=== PATIENT | female | born 1990 | race Caucasian/White ===

== ENCOUNTER → 2016-03-24 | Outpatient (CLI) | payer OTHER ==
[~2016-03-24] MED LIST: BIRTH CONTROL1 EAC1 PO; CIPRO250 MG PO; PRE-NATAL1 TA1 PO; ZOFRAN ODT4 MG SL
== END | disposition home or self-care (01) ==
LOC: US 03-16 07:30
DX: B25.9 Cytomegaloviral disease, unspecified (principal)

== ENCOUNTER 2016-10-23 12:24 | Emergency (ER) | payer SELFPAY ==
[~2016-10-23] VITALS: Ht 160 cm; Wt 61.2 kg
[2016-10-23] MEDS ORDERED: NAPROSYN500 MG PO (12:33)
== END 2016-10-23 13:25 | disposition home or self-care (01) ==
LOC: ED 12:24
DX: S62.306A Unspecified fracture of fifth metacarpal bone, right hand, initial encounter for closed fracture (principal); R03.0 Elevated blood-pressure reading, without diagnosis of hypertension; F17.200 Nicotine dependence, unspecified, uncomplicated; W55.22XA Struck by cow, initial encounter; Y93.K2 Activity, milking an animal; Y92.9 Unspecified place or not applicable; Y99.0 Civilian activity done for income or pay

== ENCOUNTER 2018-12-21 09:49 | Emergency (ER) | payer BC ==
[~2018-12-21] VITALS: Ht 162.5 cm; Wt 61.7 kg
[~2018-12-21 09:49] MED LIST changes: +NAPROSYN500 MG PO
[2018-12-21] MEDS ORDERED: ZITHROMAX250 MG PO (11:27)
[2018-12-21] MEDS ORDERED: TESSALON PERLE100 M1 PO (11:27)
[2018-12-21] MEDS ORDERED: PREDNISONE50 MG PO (11:27)
== END 2018-12-21 11:29 | disposition home or self-care (01) ==
LOC: ED 09:49
DX: J20.9 Acute bronchitis, unspecified (principal); F17.200 Nicotine dependence, unspecified, uncomplicated

== ENCOUNTER 2019-01-17 09:05 | Emergency (ER) | payer BC ==
[~2019-01-17] VITALS: Ht 165.1 cm; Wt 54.4 kg
[~2019-01-17 09:05] MED LIST changes: +PREDNISONE50 MG PO; +TESSALON PERLE100 M1 PO; +ZITHROMAX250 MG PO
[2019-01-17 09:30] LABS: BILIRUBIN NEGATIVE (NEGATIVE); BLOOD NEGATIVE (NEGATIVE); CLARITY CLEAR (CLEAR); COLOR YELLOW (YELLOW); GLUCOSE NEGATIVE (NEGATIVE); KETONE NEGATIVE (NEGATIVE); LEUKO ESTERASE 1+ (NEGATIVE); NITRITE NEGATIVE (NEGATIVE); SPECIFIC GRAVITY 1.025 (1.005-1.030); UROBILINOGEN 0.2 E.U./dl (0.2-1.0)
[2019-01-17 09:40] LABS: MUCOUS 1+
[2019-01-17] MEDS ORDERED: CEFUROXIME AXE500 MG PO (09:50)
[2019-01-18 17:04] LABS: GONOCOCCUS BY NAA Negative (Negative)
== END 2019-01-17 10:18 | disposition home or self-care (01) ==
LOC: ED 09:05
PROVIDERS: Nurse Practitioner Family
DX: N39.0 Urinary tract infection, site not specified (principal); N89.8 Other specified noninflammatory disorders of vagina; Z20.2 Contact with and (suspected) exposure to infections with a predominantly sexual mode of transmission; Z32.02 Encounter for pregnancy test, result negative; Z79.899 Other long term (current) drug therapy

== ENCOUNTER 2019-08-25 00:23 | Emergency (ER) | payer OTHER ==
[~2019-08-25] VITALS: Ht 160 cm; Wt 56.7 kg
[~2019-08-25 00:23] MED LIST changes: +CEFUROXIME AXE500 MG PO
[2019-08-25] MEDS ORDERED: HYDROCREAM28.4 GM T (01:25)
[2019-08-25] MEDS ORDERED: NEIGHBOR P PO (01:25)
== END 2019-08-25 02:03 | disposition home or self-care (01) ==
LOC: ED 00:23
DX: L25.5 Unspecified contact dermatitis due to plants, except food (principal); Z79.899 Other long term (current) drug therapy

== ENCOUNTER 2022-10-27 23:54 | Emergency (ER) | payer OTHER ==
[~2022-10-27] VITALS: Ht 160 cm; Wt 61.7 kg
[~2022-10-27 23:54] MED LIST changes: +HYDROCREAM28.4 GM T; +NEIGHBOR P PO
== END 2022-10-28 02:24 | disposition home or self-care (01) ==
LOC: ED 23:54
DX: L23.7 Allergic contact dermatitis due to plants, except food (principal); Z87.891 Personal history of nicotine dependence

== ENCOUNTER → 2023-04-01 | Outpatient (CLI) | payer OTHER | END | disposition home or self-care (01) | LOC: US 15:00 | PROVIDERS: ATTEND Nurse Practitioner Women's Health | DX: N83.202 Unspecified ovarian cyst, left side (principal) ==

== ENCOUNTER 2024-10-07 22:21 | Emergency (ER) | payer BC ==
[~2024-10-07] VITALS: Ht 162.5 cm; Wt 72.1 kg
[2024-10-07] MEDS ORDERED: Ondansetron Hydrochloride 4 MG/2 ML VIAL IV ONE (22:40)
[2024-10-07] MEDS ORDERED: SODIUM CHLORIDE 0.9% 1,000 ML IV ONE ×2 (22:40)
[2024-10-07 22:42] LABS: BILIRUBIN Negative (Negative); BLOOD 1+ (Negative); CLARITY Cloudy (Clear); COLOR Yellow (Yellow); KETONE 3+ (Negative); LEUKO ESTERASE 1+ (Negative); NITRITE Negative (Negative); PH 6.0 (4.5-8.0); SPECIFIC GRAVITY 1.025 (1.001-1.030); UROBILINOGEN 1.0 E.U./dl (0.0-1.0)
[2024-10-07 22:57] LABS: EPITHELIAL CELLS 41-50; MUCOUS 2+; RBC 16-20 rbc/hpf (0-2)
== END 2024-10-08 00:11 | disposition home or self-care (01) ==
LOC: ED
PROVIDERS: Internal Medicine
DX: O21.0 Mild hyperemesis gravidarum (principal); Z3A.00 Weeks of gestation of pregnancy not specified

== ENCOUNTER 2025-01-03 21:20 | Emergency (ER) | payer BC ==
[~2025-01-03] VITALS: Ht 162.5 cm; Wt 73.5 kg
[2025-01-03] MEDS ORDERED: SODIUM CHLORIDE 0.9% 1,000 ML IV ONE (21:40)
[2025-01-03] MEDS ORDERED: Ondansetron Hydrochloride 4 MG/2 ML VIAL IV ONE (21:40)
== END 2025-01-03 23:47 | disposition home or self-care (01) ==
LOC: ED 21:20
DX: O98.512 Other viral diseases complicating pregnancy, second trimester (principal); B34.9 Viral infection, unspecified; R11.2 Nausea with vomiting, unspecified; R19.7 Diarrhea, unspecified; Z20.822 Contact with and (suspected) exposure to COVID-19; Z3A.18 18 weeks gestation of pregnancy